=== PATIENT | male | born 1955 | race Two or more races ===

== ENCOUNTER 2020-08-15 13:55 | Outpatient (CLI) | payer MEDICARE, MEDICAID | END 2020-08-15 15:55 | disposition home or self-care (01) | LOC: PAN 13:55 | DX: R10.9 Unspecified abdominal pain (principal) | CPT/HCPCS: 99203 ==

== ENCOUNTER → 2020-08-28 | Day surgery (SDC) | payer MEDICARE, MEDICAID ==
[~2020-08-28] VITALS: Ht 154.9 cm; Wt 68.9 kg
[2020-08-28] VITALS (9 sets, daily range): BP systolic 100–137; BP diastolic 60–78
[~2020-08-28] MED LIST: LIPITOR20 MG ORAL; LR 1000ml ONE; Lidocaine 1% MPF 10mg/ml 5ml ONE
--- NOTE | 2020-08-28 08:42 | Pre-Procedure Note/Attestation ---
Pre-Procedure Note/Attestation Complete Prior to Procedure Planned Procedure: not applicable Procedure Narrative: esophagogastroduodenoscopy and colonoscopy Indications for Procedure Pre-Operative Diagnosis: screening colon, GERD Attestation I attest that I discussed the nature of the procedure; its benefits; risks and complications; and alternatives (and the risks and benefits of such al ternatives), prior to the procedure, with the patient (or the patient's legal chemical sales representative). I attest that, if there was a reasonable possibility of needing a blood transfusion, the patient (or the patient's legal chemical sales representative) was given the [facility] standardized written summary, pursuant to the [employer] Blood Safety Act ([place] Health and Safety Code # 1645, as amended). I attest that I re-evaluated the patient just prior to the surgery and that there has been no change in the patient's H&P, except as documented below: Devonte Fonseca MD Aug 28, 2020 08:42
--- NOTE | 2020-08-28 08:43 | Short Stay Surgery H&P ---
History of Present Illness History of Present Illness Chief Complaint see office consult note HPI Blayne Mendez is a 65 year old male who was admitted on for Gerd, Colon Screening Patient History Allergies: Coded Allergies: AMOXICILLIN (Verified Adverse Reaction, Intermediate, 08/26/20) diarrhea Medication History Scheduled Atorvastatin Calcium* (Lipitor*), 20 MG ORAL BEDTIME, (Reported) Physical Exam Vital Signs Last Vital Signs Date Time Temp Pulse Resp B/P (MAP) Pulse Ox O2 Delivery O2 Flow Rate FiO2 08/28/20 08:17 Room Air 08/28/20 07:51 98.4 72 18 137/77 97 Plan Attestation Are the patient's medical conditions optimized for surgery? Devonte Fonseca MD Aug 28, 2020 08:43
--- NOTE | 2020-08-28 09:26 | Endoscopy Procedure Note ---
Endoscopy Procedure Note General Indication for Procedure: screening colon ,GERD Procedures Performed: EGD, colonoscopy Operative Findings/Diagnosis: 3 polyps Specimen: yes Pt Tolerated Procedure Well: Yes Estimated Blood Loss: none Anesthesia Anesthesiologist: mansi Anesthesia: MAC Inserted Devices Implant(s) used?: No Quality Quality of Bowel Preparation: Good Did scope reach the cecum?: Yes Was there any complications?: No GI Core Measures 50 yrs or older w/o bx or poly: No 10yrs. F/U recommended: Yes If not recommended, why?: Above average risk 18 years or older w/prev. colo: No Devonte Fonseca MD Aug 28, 2020 09:26
--- NOTE | 2020-08-28 09:40 | Anethesia Preoperative Eval ---
Anesthesia Pre-op PMH/ROS General Date of Evaluation: Aug 28, 2020 Time of Evaluation: 09:00 Anesthesiologist: sean ASA Score: ASA 2 Mallampati Score Class I : Soft palate, uvula, fauces, pillars visible Class II: Soft palate, uvula, fauces visible Class III: Soft palate, base of uvula visible Class IV: Only hard plate visible Mallampati Classification: Class III Surgeon: werner Diagnosis: GERD Surgical Procedure: EGD/Colonoscopy Anesthesia History: none Family History: no anesthesia problems Allergies: Coded Allergies: AMOXICILLIN (Verified Adverse Reaction, Intermediate, 08/26/20) diarrhea Medications: see eMAR Patient NPO?: Yes NPO Date: Aug 28, 2020 NPO Time: 00:01 Past Medical History Cardiovascular: Reports: other - high cholestrol; Denies: HTN, CAD, DC, valve dz, arrhythmia Pulmonary: Denies: asthma, COPD, WM, other Gastrointestinal/Genitourinary: Reports: GERD; Denies: CRI, ESRD, other Neurologic/Psychiatric: Denies: dementia, CVA, depression/anxiety, TIA, other Endocrine: Denies: DM, hypothyroidism, steroids, other HEENT: Denies: cataract (L), cataract (R), glaucoma, COEUR D'ALENE (L), COEUR D'ALENE (R), other Hematology/Immune: Denies: anemia, DVT, bleeding disorder, other Musculoskeletal/Integumentary: Denies: OA, RA, DJD, DDD, edema, other PSxH Narrative: shoulder surgery Anesthesia Pre-op Phys. Exam Physician Exam Last Vital Signs Date Time Temp Pulse Resp B/P (MAP) Pulse Ox O2 Delivery O2 Flow Rate FiO2 08/28/20 08:17 Room Air 08/28/20 07:51 98.4 72 18 137/77 97 Constitutional: NAD Neurologic: CN 2-12 intact Cardiovascular: RRR Respiratory: CTA Gastrointestinal: S/NT/ND Airway Exam Mallampati Classification 2 Mallampati Score: Class II MO: full ROM: full Dentures: no upper, no lower Anesthesia Pre-op A/P Studies Pre-op Studies: EKG - sr Risk Assessment & Plan Assessment: covid neg Plan: mac Status Change Before Surgery: No Pre-Antibiotics Drug: none Ghislaine Taylor CRNA Aug 28, 2020 09:40
--- NOTE | 2020-08-28 09:42 | Immediate Post-Op Evaluation ---
Immediate Post-Op Evalulation Immediate Post-Op Evalulation Procedure: EGD/Colonoscopy Date of Evaluation: Aug 28, 2020 Time of Evaluation: 09:25 IV Fluids: 500 Blood Pressure Systolic: 118 Blood Pressure Diastolic: 66 Pulse Rate: 68 Respiratory Rate: 14 O2 Sat by Pulse Oximetry: 100 Temperature (Fahrenheit): 97.1 Nausea: No Vomiting: No Complications none Patient Status: awake, reacts, patent Hydration Status: adequate Drug: none Ghislaine Taylor CRNA Aug 28, 2020 09:42
--- NOTE | 2020-08-28 10:13 | 48 Hour Post Anesthesia Eval ---
Post Anesthesia Evaluation Procedure: EGD/Colonoscopy Date of Evaluation: Aug 28, 2020 Time of Evaluation: 10:12 Blood Pressure Systolic: 131 0: 77 Pulse Rate: 14 Respiratory Rate: 12 Temperature (Fahrenheit): 97.1 O2 Sat by Pulse Oximetry: 99 Airway: patent Nausea: No Vomiting: No Hydration Status: adequate Cardiopulmonary Status: stable Mental Status/LOC: patient returned to baseline Follow-up Care/Observations: na Post-Anesthesia Complications: none Follow-up care needed: N/A Ghislaine Taylor CRNA Aug 28, 2020 10:13
--- NOTE | 2020-09-02 02:59 | Procedure Note ---
DATE OF PROCEDURE: 08/28/2020 PROCEDURE: Upper endoscopy with biopsy, colonoscopy with snare polypectomy and biopsy. ANESTHESIA: Per OXIDE FURNACE TENDER, Ghislaine Tarrillkassandra. INSTRUMENT: Olympus adult flexible upper endoscope and colonoscope. INDICATION: Screening colonoscopy chronic GERD. REASON FOR PROCEDURE: The procedure, risks, benefits, and possible consequences, including hemorrhage, aspiration, perforation and infection, and alternative treatments, were explained to the patient/legal guardian by Dr. Devonte Fonseca and the patient/legal guardian understood and accepted these risks. PROCEDURE IN DETAIL: After informed consent was obtained and the patient was adequately sedated, Olympus upper endoscope was advanced from mouth into the second portion of the duodenum and retroflexion performed in the stomach. The patient has diffuse gastritis. Random biopsy from antrum was obtained to rule out H. pylori infection. The rest of the examination grossly normal limits. At this time, the upper endoscope was retrieved and the patient was turned over for colonoscopy. First, rectal exam was performed, which was positive for internal hemorrhoids. Then, the scope was advanced from rectum into the cecum and then subsequently terminal ileum. Quality of prep was good. The patient had 3 polyps, 1 in the cecum and 2 in the transverse colon. One in the cecum was measured roughly about 6 mm and removed with cold snare polypectomy technique. The other 2 were small and removed with cold biopsy forceps technique. Retroflexion of rectum showed evidence of internal hemorrhoids. SUMMARY OF FINDINGS: 1. Gastritis, status post biopsy. 2. 3 colonic polyps, removed. See above for details. 3. Internal hemorrhoids. RECOMMENDATIONS: 1. Follow path. 2. Given 3 polyps, we recommend repeat colonoscopy in three years. Devonte Fonseca M.D. DR: ROBERT JOB#: [id number] CC:
== END | disposition home or self-care (01) ==
LOC: GAS 07:14
DX: Z12.11 Encounter for screening for malignant neoplasm of colon (principal); D12.3 Benign neoplasm of transverse colon; K29.50 Unspecified chronic gastritis without bleeding; K21.9 Gastro-esophageal reflux disease without esophagitis; K63.5 Polyp of colon; K64.8 Other hemorrhoids; E78.00 Pure hypercholesterolemia, unspecified; Z88.1 Allergy status to other antibiotic agents
CPT/HCPCS: 43239; 45380; 45385; 93005; 94003; J2704; J7120; U0004; 94150

== ENCOUNTER 2020-09-04 13:15 | Outpatient (CLI) | payer MEDICARE, MEDICAID ==
[~2020-09-04 13:15] MED LIST changes: -LR 1000ml ONE; -Lidocaine 1% MPF 10mg/ml 5ml ONE
[2020-09-04 13:44] VITALS: BP 149/78
--- NOTE | 2020-09-04 14:34 | General Progress Note ---
Subjective ROS Limited/Unobtainable: Yes Allergies: Coded Allergies: AMOXICILLIN (Verified Adverse Reaction, Intermediate, 08/26/20) diarrhea Objective Last 24 Hour Vital Signs Date Time Temp Pulse Resp B/P (MAP) Pulse Ox O2 Delivery O2 Flow Rate FiO2 09/04/20 13:44 97.6 78 16 149/78 96 General Appearance: alert EENT: normal ENT inspection Neck: supple Cardiovascular: normal rate Respiratory/Chest: decreased breath sounds Abdomen: normal bowel sounds, non tender, soft Extremities: non-tender Assessment/Plan Assessment/Plan: SUMMARY OF FINDINGS: 1. Gastritis, status post biopsy. 2. 3 colonic polyps, removed. See above for details. 3. Internal hemorrhoids. RECOMMENDATIONS: 1. Follow path.>>> reviewed 2. Given 3 polyps, we recommend repeat colonoscopy in three years. 3. ADd align Devonte Fonseca MD Sep 04, 2020 14:34
== END 2020-09-04 15:32 | disposition home or self-care (01) ==
LOC: PAN 13:15
DX: K29.70 Gastritis, unspecified, without bleeding (principal); K63.5 Polyp of colon; K64.8 Other hemorrhoids; Z88.1 Allergy status to other antibiotic agents
CPT/HCPCS: 99212